=== PATIENT | female | born 1980 | race American Indian/Alaskan Native ===

== ENCOUNTER 2017-06-07 00:24 | Emergency (ER) | payer BC ==
[2017-06-07 00:33] VITALS: BP 119/74
--- NOTE | 2017-06-07 02:24 | Emergency Department Report ---
HPI - General Chief Complaint: Urogenital-Female Time Seen by Provider: 06/07/17 02:23 - HPI HPI: Patient reports that she was exposed to HIV from her partner. She said she had a sexual encounter with him on 06/05/2017. Patient says she has had ongoing relationship with her partner and he just let her know 2 days ago that he was exposed to HIV from another person. Patient has documentation were patient was wanted in [place] in 2004 for exposing other females to HIV which makes patient positive since 2004. Patient pulled up records the patient was arrested and charged with exposing wanting to HIV in 2004. Patient said that she had HIV testing done in 06/01 2017 and it came back nonreactive. She has documentation with her. She says that her nurse just told her today's ago after having sex that he was exposed to HIV and she is here to get postexposure protocol because she says she was negative after having sex with him for 1 month and now wants to be tested and treated. She is asymptomatic with no pain. ED Past Medical Hx - Past Medical History Previous Medical History?: Yes Additional medical history: OVARIAN CYSTS - Surgical History Past Surgical History?: Yes Hx Appendectomy: Yes Additional Surgical History: hysterectomy--PARTIAL. x 3. fistula repair - Family History Family history: no significant - Social History Smoking Status: Never Smoker Substance Use Type: None - Medications Home Medications: Home Medications Medication Instructions Recorded Confirmed Last Taken Type Acetaminophen/Codeine [Tylenol #3] 1 tab PO Q6H PRN #15 tab 04/07/15 Unknown Rx Ibuprofen [Motrin 800 MG tab] 800 mg PO Q8HR PRN #30 tablet 04/07/15 Unknown Rx Emtricitabin/Tenofovir [TRUVADA 1 tab PO QDAY 30 Days #30 tablet 06/07/17 Unknown Rx 200-300 mg] Raltegravir Potassium [Isentress] 400 mg PO BID 30 Days #60 tablet 06/07/17 Unknown Rx ED Review of Systems ROS: Stated complaint: POSSIBLE HIV EXPOSURE Other details as noted in HPI Comment: All other systems reviewed and negative Constitutional: no symptoms reported ENT: denies: throat pain, congestion Respiratory: no symptoms reported Cardiovascular: denies: chest pain, palpitations, dyspnea on exertion, edema, syncope, paroxysmal nocturnal dyspnea Gastrointestinal: denies: abdominal pain, nausea, vomiting, diarrhea, constipation Genitourinary: denies: urgency, dysuria, frequency, hematuria, discharge Musculoskeletal: denies: back pain, joint swelling, arthralgia, myalgia Skin: denies: rash Neurological: denies: headache, numbness, paresthesias, abnormal gait, vertigo Physical Exam - Physical Exam Vital Signs: Vital Signs 06/07/17 06/07/17 00:25 00:28 Temperature 98.3 F 98.3 F Pulse Rate 73 73 Respiratory 18 16 Rate Blood Pressure 119/74 119/74 O2 Sat by Pulse 100 100 Oximetry General: This is a 36-year-old female well-nourished well-developed in no acute distress Physical Exam: Head: Normocephalic, atraumatic, no abrasion, no bruising and no contusion. Eyes: Biateral pupils equal and reactive to light, bilateral EOM intact.. Bilateral conjunctival and sclera without injection, normal accommodation. Mouth: Moist, no pharyngeal exudate or erythema. No peritonsillar abscesses. Uvula is midline and oral airways patent. Neck: Supple, No Cervical adenopathy, full range of motion and no C-spine tenderness. No swelling or tracheal deviation normal reflexes Cardiovascular: S1, S2. Regular rate and rhythm. No murmur. Capillary refill is less then 3 seconds. Lungs: Clear to auscultate bilaterally. No rhonchi, wheezes or rales. No chest wall tenderness. No chest contusion. No bruising to chest. MSK: Strength 5/5 in all extremities. No joint deformity or crepitus. Normal inspection. Full range of motion to all extremities. No laceration, abrasion or ecchymotic area noted. Abdomen: Non-tender to palpate in all quadrants, no guarding or rebound tenderness, positive bowel sounds in all quadrants. No CVA tenderness. No hernia, bruit or mass. No rigidity or distention. Extremities: No clubbing, cyanosis or edema. +2 pulses. No neurovascular compromise Skin: Clean, dry and intact. No rash or lesions. Neurological: GCS at 15, Pt is alert and oriented 3 speech is clear . Normal gait Psych: Normal mood and behavior ED Course Vital Signs 06/07/17 06/07/17 00:25 00:28 Temperature 98.3 F 98.3 F Pulse Rate 73 73 Respiratory 18 16 Rate Blood Pressure 119/74 119/74 O2 Sat by Pulse 100 100 Oximetry - Reevaluation(s) Reevaluation #1: 06/07/17 05:13 HIV consent obtained and patient fine. Laboratory tests drawn to include rapid HIV which was nonreactive. Other lab work or within normal limits except for her hepatitis panel is not resulted. ED Medical Decision Making - Lab Data Result diagrams: 06/07/17 02:28 06/07/17 02:28 Lab Results 06/07/17 06/07/17 06/07/17 Range/Units 02:28 02:28 02:28 WBC 9.4 (4.5-11.0) K/mm3 RBC 4.53 (3.65-5.03) M/mm3 Hgb 13.2 (10.1-14.3) gm/dl Hct 40.1 (30.3-42.9) % MCV 89 (79-97) fl MCH 29 (28-32) pg MCHC 33 (30-34) % RDW 14.2 (13.2-15.2) % Plt Count 271 (140-440) K/mm3 Lymph % (Auto) 37.0 H (13.4-35.0) % [place] % (Auto) 5.5 (0.0-7.3) % Eos % (Auto) 1.1 (0.0-4.3) % Baso % (Auto) 0.5 (0.0-1.8) % Lymph # 3.5 (1.2-5.4) K/mm3 [place] # 0.5 (0.0-0.8) K/mm3 Eos # 0.1 (0.0-0.4) K/mm3 Baso # 0.0 (0.0-0.1) K/mm3 Seg Neutrophils % 55.9 (40.0-70.0) % Seg Neutrophils # 5.2 (1.8-7.7) K/mm3 Sodium 142 (137-145) mmol/L Potassium 4.0 (3.6-5.0) mmol/L Chloride 101.7 (98-107) mmol/L Carbon Dioxide 27 (22-30) mmol/L Anion Gap 17 mmol/L BUN 10 (7-17) mg/dL Creatinine 0.7 (0.7-1.2) mg/dL Estimated GFR > 60 ml/min BUN/Creatinine Ratio 14 % Glucose 104 H (65-100) mg/dL Calcium 9.0 (8.4-10.2) mg/dL Total Bilirubin 0.40 (0.1-1.2) mg/dL Direct Bilirubin < 0.2 (0-0.2) mg/dL Indirect Bilirubin 0.2 mg/dL AST 14 (5-40) units/L ALT 10 (7-56) units/L Alkaline Phosphatase 77 (35-129) units/L Total Protein 7.5 (6.3-8.2) g/dL Albumin 4.2 (3.9-5) g/dL Albumin/Globulin Ratio 1.3 % HCG, Qual Negative (Negative) HIV 1&2 Antibody Rapid Non react (Non React) HIV P24 Antigen Non react (Non React) Hepatitis panel pending - Medical Decision Making I spoke with Dr. Mar regarding patient ED course: Agents here requested postexposure treatment for HIV. She reports that she was exposed to HIV from her partner and she was tested on 06/01/2017 and teslas nonreactive. Patient has documentation. She also has documentation were patient was arrested in 2004 for Cecilio exposed in several woman to HIV in [place]. Agents that she notify the police and she is here to be treated. Patient does have a primary care physician and does have access to medical care and to medication. I counseled her on presentation test and positive HIV. A consultation on medication for post exposure protocol to include Insentress and Truvada. I also counseled her that she will need to follow up with her primary care physician in 2-3 days. I discussed the patient' s side effects of medication and the need for her to follow-up for blood tests status post HIV exposure and medication. I discussed with her she'll need to have testing done 30 days, and 90 days, next month and 1 year following exposure to HIV. I explained to her the reasons why she'll need to have testing done. Patient voices understanding of discharge instruction, medication , need to follow up, medication side effects, she was updated on her lab results and I discussed with her that her hepatitis panel is still not resulted and she can have her primary care physician requesting a copy of the lab results on her emergency room visit. Discharged home with prescription for Insentress and Truvada. I discussed with her that this is in the brand name and she can get generic form also will note on prescription. Critical care attestation.: If time is entered above; I have spent that time in minutes in the direct care of this critically ill patient, excluding procedure time. ED Disposition Clinical Impression: History of exposure to HIV Disposition: DC- TO HOME OR SELFCARE Is pt being admited?: No Does the pt Need Aspirin: No Condition: Stable Instructions: Postexposure Prophylaxis (ED), Raltegravir (By mouth), Emtricitabine/Tenofovir (By mouth) Additional Instructions: These medication for postexposure prophylaxis can cause several side effects please see discharge instruction paperwork on medication and side effects. Increase her fluid intake Please follow-up with your primary care physician in 2-3 days for evaluation and lab work after starting on post exposure protocol for HIV He will need to have postexposure lab work 30 days, 90 days, 6 months and one year. These practice safe sex and always that U partner know about concerns. Your HIV test was nonreactive today but you'll need to have repeat testing done. Prescriptions: Emtricitabin/Tenofovir [TRUVADA 200-300 mg] 1 tab PO QDAY 30 Days #30 tablet Raltegravir Potassium [Isentress] 400 mg PO BID 30 Days #60 tablet Referrals: follow-up with your, primary care physician [Other] - [facility] - 2-3 Days [facility] [Outside] - 2-3 Days Forms: Work/School Release Form(ED)
[2017-06-07 03:19] LABS: Basophils % (Auto) 0.5 % (0.0-1.8); Eosinophils # (Auto) 0.1 K/mm3 (0.0-0.4); Eosinophils % (Auto) 1.1 % (0.0-4.3); Hematocrit 40.1 % (30.3-42.9); Hemoglobin 13.2 gm/dl (10.1-14.3); Lymphocytes # (Auto) 3.5 K/mm3 (1.2-5.4); Mean Corpuscular HGB Conc 33 % (30-34); Mean Corpuscular Hemoglobin 29 pg (28-32); Mean Corpuscular Volume 89 fl (79-97); Monocytes # (Auto) 0.5 K/mm3 (0.0-0.8); Monocytes % (Auto) 5.5 % (0.0-7.3); Platelet Count 271 K/mm3 (140-440); Red Blood Count 4.53 M/mm3 (3.65-5.03); Red Cell Distribution Width 14.2 % (13.2-15.2)
[2017-06-07 03:24] LABS: Alanine Aminotransferase 10 units/L (7-56); Albumin 4.2 g/dL (3.9-5); BUN/Creatinine Ratio 14; Blood Urea Nitrogen 10 mg/dL (7-17); Hemolysis Index 9
[2017-06-07 03:46] LABS: Bilirubin,Direct < 0.2 mg/dL (0-0.2)
[2017-06-07 06:13] LABS: Hepatitis A Antibody IgM Non-Reactive (NonReactive); Hepatitis B Core IgM Non-Reactive (NonReactive); Hepatitis B Surface Antigen Non-Reactive (Negative); Hepatitis C Virus Antibody Non-Reactive (NonReactive)
== END 2017-06-07 05:45 | disposition home or self-care (01) ==
LOC: ED 00:24
DX: Z20.828 Contact with and (suspected) exposure to other viral communicable diseases (principal)
CPT/HCPCS: 36415; 80048; 80074; 84703; 85025; 87806

== ENCOUNTER 2017-07-02 10:09 | Emergency (ER) | payer BC ==
[2017-07-02 10:42] VITALS: BP 111/70
--- NOTE | 2017-07-02 11:32 | Emergency Department Report ---
Chief Complaint: Medical Clearance Stated Complaint: MED REFILL Time Seen by Provider: 07/02/17 11:28 - HPI History of Present Illness: Patient is a 36-year-old female who presents to ED for refill of prophylaxis HIV medication. Patient was seen here generally to any status post possible post exposure to HIV. Patient's test came back negative. Patient was also tested by her ADULT PROTECTIVE CASEWORKER which she states test was negative. Patient states that her ADULT PROTECTIVE CASEWORKER from patient she would need to come back here to get her meds refilled. Patient denies any fever, shortness of breath, chills, nausea, vomiting or any other side effects since taking the medications.. - ROS Review of Systems: As noted in HPI - Exam Vital Signs: Vital Signs 07/02/17 10:38 Temperature 98.1 F Pulse Rate 74 Blood Pressure 111/70 O2 Sat by Pulse 98 Oximetry Physical Exam: GENERAL: Alert and oriented x3, no apparent distress, Normal Gait, atraumatic. HEAD: Head is normocephalic and a-traumatic. LUNGS: Symetrical with respiration, CTAB. HEART: S1, S2 present, regular rate and rhythm without murmur, SKIN: Warm and dry, No lesions, No ulceration or induration present. MSE screening note: Focused history and physical exam performed. Due to findings the following was ordered: ED Medical Decision Making - Medical Decision Making 36-year-old female presents with medication refill Medication was verified patient had a prescription bottle up to date with her. The patient will be refilled today. She is to follow back up with her ADULT PROTECTIVE CASEWORKER for serial testing at 3 and 6 months. I discussed this with the patient. I discussed with the patient to also follow up with infectious disease if needed. Vital signs are normal ED Disposition for MSE Clinical Impression: Medication refill Disposition: DC-01 TO HOME OR SELFCARE Is pt being admited?: No Does the pt Need Aspirin: No Condition: Stable Instructions: Postexposure Prophylaxis (ED) Prescriptions: Emtricitabin/Tenofovir [TRUVADA 200-300 mg] 1 tab PO QDAY 30 Days #30 tablet Raltegravir Potassium [Isentress] 400 mg PO BID 30 Days #60 tablet Referrals: PRIMARY CAREMD [Primary Care Provider] - 3-5 Days JOSE R LERMA MD [Referring] - 3-5 Days [facility] [Outside] - 3-5 Days [facility] [Outside] - 3-5 Days Forms: Work/School Release Form(ED) Time of Disposition: 11:34
== END 2017-07-02 11:46 | disposition home or self-care (01) ==
LOC: ED 10:09
DX: Z76.0 Encounter for issue of repeat prescription (principal)
CPT/HCPCS: 99282

== ENCOUNTER 2017-07-09 09:00 | Emergency (ER) | payer BC ==
[2017-07-09 09:20] VITALS: BP 108/79
[2017-07-09 11:15] LABS: Bilirubin,Urine NEG (Negative); Blood,Urine NEG (Negative); Color,Urine Yellow (Yellow); Protein,Urine <15 mg/dL mg/dL (Negative); Urobilinogen,Urine < 2.0 mg/dL (<2.0); WBC,Urine < 1.0 /HPF (0.0-6.0)
[2017-07-09 12:51] LABS: Basophils % (Auto) 0.3 % (0.0-1.8); Eosinophils # (Auto) 0.1 K/mm3 (0.0-0.4); Eosinophils % (Auto) 0.8 % (0.0-4.3); Hematocrit 38.3 % (30.3-42.9); Hemoglobin 12.5 gm/dl (10.1-14.3); Lymphocytes # (Auto) 2.4 K/mm3 (1.2-5.4); Mean Corpuscular HGB Conc 33 % (30-34); Mean Corpuscular Hemoglobin 29 pg (28-32); Mean Corpuscular Volume 89 fl (79-97); Monocytes # (Auto) 0.4 K/mm3 (0.0-0.8); Monocytes % (Auto) 6.1 % (0.0-7.3); Platelet Count 281 K/mm3 (140-440); Red Blood Count 4.29 M/mm3 (3.65-5.03); Red Cell Distribution Width 15.3 % (13.2-15.2)
[2017-07-09] MEDS ORDERED: TORADOL IM ONE (12:55)
[2017-07-09] MEDS ORDERED: TORADOL ONE (12:56)
--- NOTE | 2017-07-09 12:57 | Emergency Department Report ---
Blank Doc - Documentation Documentation: Patient is a 36-year-old black female who is presenting with suprapubic and right sided pelvic pain. Patient states she has a history of ovarian cyst. Patient states pain is intermittent last up to 30 minutes to an hour at a time. Cramping sensation. Patient states that it is a 7 out of 10 in severity at its height. It never actually goes away sometimes as a dull ache. Patient denies any dysuria urinary frequency vaginal discharge or vaginal bleeding that is abnormal nausea vomiting diarrhea or fever at this time. Patient undergo a pelvic ultrasound as well as urinalysis labs ordered.
[2017-07-09 13:02] LABS: Alanine Aminotransferase 15 units/L (7-56); Albumin 4.1 g/dL (3.9-5); BUN/Creatinine Ratio 21; Blood Urea Nitrogen 15 mg/dL (7-17); Calcium 8.7 mg/dL (8.4-10.2); Hemolysis Index 9
[2017-07-09 13:48] LABS: HCG Qualitative,Urine Negative (Negative)
--- NOTE | 2017-07-09 14:55 | Ultrasound Report ---
ULTRASOUND PELVIC COMPLETE ULTRASOUND TRANSVAGINAL HISTORY: Pelvic pain. COMPARISON: None. TECHNIQUE: Transabdominal and transvaginal ultrasound with color doppler interrogation. FINDINGS: Uterus: Surgically absent. Right ovary: 3.6 x 2.3 x 3.1 cm. A slightly complex right ovarian cyst measures 2.2 cm. Left ovary: Not visualized. No pelvic fluid or mass is identified. Normal color doppler interrogation. IMPRESSION: Hysterectomy. 2.2 cm slightly complex right ovarian cyst. The left ovary is not visualized.
--- NOTE | 2017-07-09 16:08 | Emergency Department Report ---
ED Female HPI - General Chief complaint: Abdominal Pain Stated complaint: RIGHT SIDE ABDOMINAL PAIN Time Seen by Provider: 07/09/17 12:43 Source: patient Mode of arrival: Ambulatory Limitations: No Limitations - History of Present Illness Initial comments: This is a 36 y.o. female who is presenting with right suprapubic pelvic pain for 4 days. Reports having a history of ovarian cyst and partial hysterectomy. Pain is intermittent and last up to 30 minutes but currently not in pain. She is having nausea with pain. It is a cramping and sharp sensation. When pain occur it is 8/10 on pain scale. She is currently not taking anything for nausea or pain. Denies frequency, urgency, dysuria, vaginal discharge, vaginal bleeding, or fever. -: days(s) (4) Location: suprapubic (right side) Radiation: non-radiating Severity: moderate Severity scale (0 -10): 2 Quality: cramping, sharp Consistency: intermittent Improves with: none Worsens with: none Are you Now?: No Associated Symptoms: nausea/vomiting (nausea only). denies: vaginal discharge, vaginal bleeding, abdominal pain, fever/chills, headaches, loss of appetite, dysuria, hematuria, rash, seizure, shortness of breath, syncope, weakness - Related Data Previous Rx's Medication Instructions Recorded Last Taken Type Emtricitabin/Tenofovir [TRUVADA 1 tab PO QDAY 30 Days #30 tablet 07/02/17 Unknown Rx 200-300 mg] Raltegravir Potassium [Isentress] 400 mg PO BID 30 Days #60 tablet 07/02/17 Unknown Rx Ondansetron [Zofran Odt] 4 mg PO TID PRN #20 tab.rapdis 07/09/17 Unknown Rx Allergies Allergy/AdvReac Type Severity Reaction Status Date / Time cephalexin monohydrate Allergy Swelling Verified 05/22/14 17:15 [From Keflex] ED Review of Systems ROS: Stated complaint: RIGHT SIDE ABDOMINAL PAIN Other details as noted in HPI Constitutional: denies: chills, fever ENT: denies: ear pain, throat pain Respiratory: denies: cough, shortness of breath, wheezing Cardiovascular: denies: chest pain, palpitations Gastrointestinal: abdominal pain (lower), nausea. denies: vomiting, diarrhea, hematochezia Genitourinary: denies: urgency, dysuria, discharge Skin: denies: rash, lesions Neurological: denies: headache, weakness, paresthesias ED Past Medical Hx - Past Medical History Additional medical history: OVARIAN CYSTS - Surgical History Hx Appendectomy: Yes Additional Surgical History: hysterectomy--PARTIAL. x 3. fistula repair - Social History Smoking Status: Never Smoker Substance Use Type: None - Medications Home Medications: Home Medications Medication Instructions Recorded Confirmed Last Taken Type Emtricitabin/Tenofovir [TRUVADA 1 tab PO QDAY 30 Days #30 tablet 07/02/17 Unknown Rx 200-300 mg] Raltegravir Potassium [Isentress] 400 mg PO BID 30 Days #60 tablet 07/02/17 Unknown Rx Ondansetron [Zofran Odt] 4 mg PO TID PRN #20 tab.rapdis 07/09/17 Unknown Rx ED Physical Exam - General Limitations: No Limitations General appearance: alert, in no apparent distress - ENT ENT exam: Present: normal exam, mucous membranes moist - Respiratory Respiratory exam: Present: normal lung sounds bilaterally. Absent: respiratory distress - Cardiovascular Cardiovascular Exam: Present: regular rate, normal rhythm, normal heart sounds. Absent: systolic murmur, diastolic murmur, rubs, gallop - GI/Abdominal GI/Abdominal exam: Present: soft, tenderness (RLQ), normal bowel sounds. Absent : distended, guarding, rebound, rigid - Neurological Exam Neurological exam: Present: alert, oriented X3, normal gait - Psychiatric Psychiatric exam: Present: normal affect, normal mood - Skin Skin exam: Present: warm, dry, intact, normal color. Absent: rash ED Course Vital Signs 07/09/17 09:18 Temperature 98.2 F Pulse Rate 67 Respiratory 18 Rate Blood Pressure 108/79 O2 Sat by Pulse 100 Oximetry ED Medical Decision Making - Lab Data Result diagrams: 07/09/17 12:35 07/09/17 12:35 - Radiology Data Radiology results: report reviewed IMPRESSION: Hysterectomy. 2.2 cm slightly complex right ovarian cyst. The left ovary is not visualized. - Medical Decision Making This is a 36 y.o. that presents with abdominal pain and nausea for days. Patient examined by me. Vitals stable. CT of abdomen and pelvis obtained. Patient informed of left ovarian cyst. Obtained CBC, UA, urine HCG, and CMP, all normal. Susceptible of viral gastroenteritis. Referred to DOCUMENT COORDINATOR for f/u. Discharged home. Follow up with PCP in 24-72 hours. Critical care attestation.: If time is entered above; I have spent that time in minutes in the direct care of this critically ill patient, excluding procedure time. ED Disposition Clinical Impression: Viral gastritis, Nausea Ovarian cyst Qualifiers: Laterality: right Qualified Code(s): N83.201 - Unspecified ovarian cyst, right side Disposition: TO HOME OR SELFCARE Is pt being admited?: No Does the pt Need Aspirin: No Condition: Stable Instructions: Ovarian Cyst (ED), Acute Nausea and Vomiting (ED), Abdominal Pain (ED) Additional Instructions: Follow up with DOCUMENT COORDINATOR. Eat a bland diet that consist of bread, rice, applesauce, and toast. Increase fluid intake. Follow up with your primary care provider in 2-3 days. Prescriptions: Ondansetron [Zofran Odt] 4 mg PO TID PRN #20 tab.rapdis PRN Reason: Nausea And Vomiting Referrals: [facility] [Outside] - 3-5 Days [facility] [Outside] - 3-5 Days [facility] [Provider Group] - 3-5 Days Forms: Work/School Release Form(ED) Time of Disposition: 17:15 Print Language: ARABIC
== END 2017-07-09 16:45 | disposition home or self-care (01) ==
LOC: ED 09:00
DX: A08.4 Viral intestinal infection, unspecified (principal); N83.201 Unspecified ovarian cyst, right side; Z90.49 Acquired absence of other specified parts of digestive tract; Z90.710 Acquired absence of both cervix and uterus; Z88.1 Allergy status to other antibiotic agents
CPT/HCPCS: 36415; 76830; 76856; 80053; 81001; 81025; 85025; 96372; 99284; J1885